=== PATIENT | female | born 1985 | race Caucasian/White ===

== ENCOUNTER → 2016-06-15 | Outpatient (CLI) | payer BC ==
[~2016-06-15] MED LIST: OXYC-57 PO; PREN1TAB29
== END | disposition home or self-care (01) ==
LOC: C.LAB1850 07:34
PROVIDERS: ATTEND Obstetrics & Gynecology
DX: O28.1 Abnormal biochemical finding on antenatal screening of mother (principal)

== ENCOUNTER → 2016-08-12 | Outpatient (CLI) | payer BC ==
[2016-08-12 12:21] LABS: URINE APPEARANCE CLEAR (CLEAR); URINE BILIRUBIN NEG (NEG); URINE COLOR YELLOW; URINE NITRITE NEG (NEG); URINE SPECIFIC GRAVITY 1.003 (1.000-1.030); UROBILINOGEN NEG (NEG)
[2016-08-12 12:31] LABS: MANUAL MICROSCOPIC REQUIRED? NO; REVIEW REQ? NO
== END | disposition home or self-care (01) ==
LOC: C.LABSPEC 11:00
PROVIDERS: ATTEND Obstetrics & Gynecology
DX: Z34.02 Encounter for supervision of normal first pregnancy, second trimester (principal)

== ENCOUNTER → 2016-10-06 | Outpatient (CLI) | payer BC | END | disposition home or self-care (01) | LOC: C.LABSPEC 11:58 | PROVIDERS: ATTEND Obstetrics & Gynecology | DX: Z34.03 Encounter for supervision of normal first pregnancy, third trimester (principal) ==

== ENCOUNTER 2016-10-19 11:53 | Outpatient (CLI) | payer BC ==
[~2016-10-19] VITALS: Ht 167.6 cm; Wt 99.5 kg
[2016-10-19] MEDS ORDERED: PREN1TAB29 (12:22)
[2016-10-19 12:46] LABS: BASO % 0.1 %; BASO ABS # 0.01 K/uL (0-0.2); EOS % 0.5 %; HEMATOCRIT 31.6 % (37-47); IG% 0.4 %; LYMPH % 20.2 %; LYMPH ABS # 2.23 K/uL (1.2-3.4); MEAN CELL VOLUME 81.9 fL (80-100); MEAN CORPUSCULAR HEMOGLOBIN 26.7 pg (25-34); MEAN PLATELET VOLUME 12.4 fL (7.4-10.4); MONO % 8.7 %; NEUT % 70.1 %; PLATELET COUNT 227 K/uL (130-400); RED BLOOD COUNT 3.86 M/uL (4.2-5.4); WHITE BLOOD COUNT 11.06 K/uL (4.8-10.8)
[2016-10-19 12:57] VITALS: Ht 167.6 cm; Wt 99.5 kg
[2016-10-19 13:14] LABS: ALKALINE PHOSPHATASE 206 U/L (45-117); ALT/SGPT 18 U/L (12-78); AST/SGOT 15 U/L (15-37); URIC ACID 5.7 mg/dl (2.6-7.2)
[2016-10-19 13:20] LABS: COMPLETE YES; MEAN CORPUSCULAR HGB CONC 32.6 g/dl (32-36)
== END 2016-10-19 13:42 | disposition home or self-care (01) ==
LOC: C.LD 11:53 → C.OPB 11:53
PROVIDERS: ATTEND Obstetrics & Gynecology
DX: O99.89 Other specified diseases and conditions complicating pregnancy, childbirth and the puerperium (principal); R03.0 Elevated blood-pressure reading, without diagnosis of hypertension; Z3A.38 38 weeks gestation of pregnancy

== ENCOUNTER 2016-10-26 10:08 | Inpatient (IN) | payer BC ==
[~2016-10-26] VITALS: Ht 170.2 cm; Wt 98.6 kg
[~2016-10-26 10:08] MED LIST changes: -OXYC-57 PO
[2016-10-26] MEDS ORDERED: PENICILLIN G POTASSIUM IV 6 MU in DEXTROSE 5% 250ML 250 ML IV ONE (11:00)
[2016-10-26] MEDS: MISOPROSTOLTAB 50 MCG TAB PO PRN ×2 (11:27→16:35)
[2016-10-26] MEDS: LACTATED RINGER'S 1000ML 1,000 ML IV SCH (11:33)
[2016-10-26 11:38] VITALS: Ht 170.2 cm; Wt 98.6 kg
[2016-10-26 12:14] LABS: HEMATOCRIT 30.7 % (37-47); MEAN CELL VOLUME 81.6 fL (80-100); MEAN CORPUSCULAR HEMOGLOBIN 26.9 pg (25-34); MEAN CORPUSCULAR HGB CONC 32.9 g/dl (32-36); MEAN PLATELET VOLUME 12.8 fL (7.4-10.4); PLATELET COUNT 200 K/uL (130-400); RED BLOOD COUNT 3.76 M/uL (4.2-5.4); WHITE BLOOD COUNT 11.29 K/uL (4.8-10.8)
[2016-10-26 12:55] LABS: ALKALINE PHOSPHATASE 201 U/L (45-117); ALT/SGPT 22 U/L (12-78); CREATININE 0.87 mg/dl (0.60-1.20)
[2016-10-26 12:58] LABS: AST/SGOT 21 U/L (15-37)
[2016-10-26] MEDS: PENICILLIN G POTASSIUM IV 3 MU in DEXTROSE 5% 100ML 100 ML IV PRN ×3 (15:27→23:38)
[2016-10-26] MEDS ORDERED: LACTATED RINGER'S 1000ML 500 ML IV PRN ×2 (19:53→23:13)
[2016-10-26] MEDS ORDERED: OXYTOCIN 30 UNITS/500ML NSS IV PRN (20:00)
[2016-10-26] MEDS ORDERED: BUPIVACAINE 0.25% 30 ML VIAL ONE (22:37)
[2016-10-26] MEDS ORDERED: EpHEDrine SULFATE INJ 50 MG/ML AMP ONE (22:37)
[2016-10-26] MEDS ORDERED: FENTANYL CITRATE INJ 50 MCG/1 ML 2 ML VIAL ONE (22:37)
[2016-10-26] MEDS ORDERED: FENTANYL 2MCG/ML ROPIV 1.25MG/ML 100ML BAG EPI ONE (22:37)
[2016-10-26] MEDS: LACTATED RINGER'S 1000ML 1,000 ML IV PRN (23:12)
[2016-10-26] MEDS ORDERED: NALOXONE HCL INJ 1 MG in SODIUM CHLORIDE 0.9% 1000ML 1,000 ML IV PRN (23:13)
[2016-10-26] MEDS ORDERED: NALBUPHINE HCL INJ 10 MG/ML AMP IV PRN (23:15)
[2016-10-26] MEDS ORDERED: EpHEDrine SULFATE INJ 50 MG/ML AMP IV PRN (23:15)
[2016-10-26] MEDS ORDERED: NALOXONE HCL INJ 0.4 MG/1 ML VIAL/CARP IV PRN (23:15)
[2016-10-26] MEDS ORDERED: ONDANSETRON INJ 2 MG/ML 2 ML VIAL IV PRN (23:15)
[2016-10-26] MEDS ORDERED: DiphenhydrAMINE HCL 50 MG/ML VIAL IV PRN (23:15)
[2016-10-26] MEDS: FENTANYL 2MCG/ML ROPIV 1.25MG/ML 100ML BAG EPI PRN (23:24)
[2016-10-27] VITALS (11 sets, daily range): BP systolic 115–124; BP diastolic 67–85; PULSE 71–83; TEMP 36.6–36.7; O2SAT 97–100
[2016-10-27] MEDS: PENICILLIN G POTASSIUM IV 3 MU in DEXTROSE 5% 100ML 100 ML IV PRN ×2 (03:37→07:25)
[2016-10-27] MEDS ORDERED: CEFAZOLIN IV 3,000 MG in DEXTROSE 5% 50ML 50 ML IV SCH (06:00)
[2016-10-27] MEDS: LACTATED RINGER'S 1000ML 1,000 ML IV SCH (06:14)
[2016-10-27] MEDS: FENTANYL 2MCG/ML ROPIV 1.25MG/ML 100ML BAG EPI PRN ×2 (07:07→07:52)
[2016-10-27] MEDS ORDERED: LACTATED RINGER'S 1000ML 1,000 ML IV SCH (08:08)
[2016-10-27] MEDS ORDERED: CARBOPROST TROMETHAMINE 250 MCG/ML AMP ONE (08:14)
[2016-10-27] MEDS ORDERED: CITRIC ACID/SODIUM CITRATE 15 ML UDC PO ONE (08:15)
[2016-10-27] MEDS ORDERED: OXYTOCIN INJ 10 UNITS/ML VIAL ONE (08:24)
[2016-10-27] MEDS: LACTATED RINGER'S 1000ML 1,000 ML IV PRN (08:25)
[2016-10-27] MEDS ORDERED: MoRPHine SULFATE PF 1 MG/ML 10 ML AMP/VIAL ONE (08:26)
[2016-10-27] MEDS ORDERED: PHENYLEPHRINE 100MCG/ML 5ML SYR ONE (08:52)
[2016-10-27] MEDS ORDERED: KETOROLAC TROMETHAMINE 30 MG/ML VIAL ONE (09:12)
[2016-10-27] MEDS ORDERED: ONDANSETRON INJ 2 MG/ML 2 ML VIAL ONE (09:12)
[2016-10-27] MEDS ORDERED: HYDROCORTISONE ACETATE 25 MG SUPP PR PRN ×2 (09:30→17:00)
[2016-10-27] MEDS ORDERED: BENZOCAINE 20% AER SPR 82.5 GM CAN EXT PRN ×2 (09:30→17:00)
[2016-10-27] MEDS ORDERED: LANOLIN OINT EXT PRN ×4 (09:30→17:00)
[2016-10-27] MEDS ORDERED: DIPHTHERIA/TETANUS/PERTUSSIS 0.5 ML SYR/VIAL IM. ONE (09:30)
[2016-10-27] MEDS ORDERED: SUPERCREAM 0.870 % 15GM JAR EXT PRN ×2 (09:30→17:00)
--- NOTE | 2016-10-27 09:35 | Anesthesia Procedure Note ---
Anesthesia Epidural Removal Nt Date & Time October 27, 2016 at 09:35 Vital Signs Pain Intensity: 4.0 Notes Mental Status: alert / awake / arousable, participated in evaluation Nausea / Vomiting: adequately controlled Pain: adequately controlled Airway Patency, RR, SpO2: stable & adequate BP & HR: stable & adequate Hydration State: stable & adequate Neuraxial Anesthesia: was administered Anesthetic Complications: no major complications apparent, pt satisfied with anesthetic care Epidural: removed without complications, with tip intact
[2016-10-27] MEDS ORDERED: SODIUM CHLORIDE 0.9% 1000ML 1,000 ML IV PRN (09:37)
[2016-10-27] MEDS ORDERED: LACTATED RINGER'S 1000ML 500 ML IV PRN (09:37)
[2016-10-27] MEDS ORDERED: NALOXONE HCL INJ 1 MG in SODIUM CHLORIDE 0.9% 1000ML 1,000 ML IV PRN (09:37)
[2016-10-27] MEDS ORDERED: NALOXONE HCL INJ 0.08 MG in SYRINGE 1.8 ML IV PRN (09:37)
[2016-10-27] MEDS ORDERED: NALOXONE HCL 0.4 MG/1 ML VIAL/CARP IV PRN (09:45)
[2016-10-27] MEDS ORDERED: ONDANSETRON INJ 2 MG/ML 2 ML VIAL IV PRN (09:45)
[2016-10-27] MEDS ORDERED: KETOROLAC TROMETHAMINE 30 MG/ML VIAL IV. PRN (09:45)
[2016-10-27] MEDS ORDERED: DiphenhydrAMINE HCL 50 MG/ML VIAL IV PRN ×2 (09:45→17:00)
[2016-10-27] MEDS ORDERED: NALBUPHINE HCL INJ 10 MG/ML AMP IV PRN (09:45)
[2016-10-27] MEDS ORDERED: EpHEDrine SULFATE INJ 50 MG/ML AMP IV PRN (09:45)
[2016-10-27] MEDS ORDERED: MoRPHine SULFATE PF 1 MG/ML 10 ML AMP/VIAL EPI PRN (09:45)
[2016-10-27] MEDS ORDERED: MoRPHine SULFATE 2 MG/ML CARP IV PRN (09:45)
[2016-10-27] MEDS ORDERED: NO NARCOTICS OR SEDATIVES SCH (09:45)
--- NOTE | 2016-10-27 10:21 | OPERATIVE REPORT ---
DATE OF OPERATION: 10/27/2016 PREOPERATIVE DIAGNOSES: 1. Term . 2. Gestational hypertension. 3. Failure to descend. POSTOPERATIVE DIAGNOSES: Same. PROCEDURE PERFORMED: Primary low cervical transverse section. SURGEON: Schuyler Verde MD FINGERNAIL FORMER: Rolando Barrientos MD ANESTHESIA: Epidural. FINDINGS: Viable female infant with Apgars of 9 and 9 and a weight of 8 pounds 6 ounces. Cord blood collection kit obtained. Cord gases and cord blood samples obtained. Normal appearing tubes and ovaries bilaterally. PROCEDURE IN DETAIL: The patient was taken to the operating room and under epidural anesthesia, she was placed in supine position and draped and prepped in the usual fashion. Pfannenstiel type incision was made. Underlying subcutaneous tissue was dissected down to the ventral abdominal fascia, which was nicked and opened in a horizontal manner. Preperitoneal fascia was dissected away until the peritoneal cavity was entered and opened in a vertical manner. The peritoneum overlying the uterus was elevated, opened in a semi-lunar fashion, and the inferior margin of which was taken down creating the bladder flap. Uterus was entered sharply and extended in a semilunar fashion manually. Viable female infant with description as above was delivered. Cord was clamped and cut and the baby was passed off to pediatrics, who was in attendance for the delivery. Cord gases and cord blood samples obtained. Cord blood collection kit obtained and sent per the patient request. The placenta was delivered spontaneously and the uterus was exteriorized. The uterine cavity was wiped clean of any residual blood tissue and/or clot. Hemabate 250 mcg was injected directly into the myometrium. The edges of the uterine incision were isolated. They were closed with 2 layers of 4-0 Vicryl, the first a running locking stitch and the second an imbricating stitch. Hemostasis was achieved and the uterus was returned to the pelvic cavity. The pericolic gutters were cleared bilaterally of any blood tissue and/or clot. Sponge and needle count was correct. Incision was inspected for hemostasis again, which was present. The rectus muscle was then plicated in the midline with a running 2-0 Vicryl stitch. The fascia was closed laterally with 0 Vicryl suture. The subcutaneous tissue was irrigated with warm saline and the skin incision was closed with a 4-0 Monocryl subcuticular suture. Sterile dressing was applied and the patient was taken to the recovery room in satisfactory condition. I attest to the content of the Intraoperative Record and any orders documented therein. Any exceptio ns are noted below.
[2016-10-27] MEDS: OXYTOCIN INJ 20 UNITS in LACTATED RINGER'S 1000ML 1,000 ML IV SCH ×2 (10:24→18:07)
[2016-10-27] MEDS ORDERED: MAGNESIUM HYDROXIDE SUSP 30 ML UDC PO PRN (17:00)
[2016-10-27] MEDS ORDERED: SENNA 8.6 MG TAB PO PRN (17:00)
[2016-10-27] MEDS: SIMETHICONE 80 MG CHEW PO SCH ×2 (17:13→19:42)
[2016-10-27] MEDS: DOCUSATE SODIUM 100 MG CAP PO SCH (19:42)
[2016-10-28] VITALS: O2SAT 98
[2016-10-28] MEDS ORDERED: DiphenhydrAMINE HCL 50 MG/ML VIAL IV PRN (00:30)
[2016-10-28] MEDS ORDERED: KETOROLAC TROMETHAMINE 30 MG/ML VIAL IV. PRN (00:30)
[2016-10-28] MEDS ORDERED: ONDANSETRON INJ 2 MG/ML 2 ML VIAL IV PRN (00:30)
[2016-10-28] MEDS ORDERED: DC INTRASPINAL MORPHINE ONE (00:30)
[2016-10-28] MEDS ORDERED: OXYCODONE/ACETAMINOPHEN 5-325 TAB PO PRN ×2 (00:30)
[2016-10-28] MEDS: OXYTOCIN INJ 20 UNITS in LACTATED RINGER'S 1000ML 1,000 ML IV SCH (01:07)
[2016-10-28 03:55] VITALS: BP 127/80; PULSE 77; TEMP 36.8; O2SAT 96
[2016-10-28 06:09] LABS: BASO % 0.1 %; BASO ABS # 0.01 K/uL (0-0.2); EOS % 0.4 %; IG% 0.2 %; LYMPH % 15.3 %; LYMPH ABS # 2.17 K/uL (1.2-3.4); MEAN CELL VOLUME 81.6 fL (80-100); MONO % 8.4 %; NEUT % 75.6 %; PLATELET COUNT 158 K/uL (130-400); RED BLOOD COUNT 2.82 M/uL (4.2-5.4); WHITE BLOOD COUNT 14.21 K/uL (4.8-10.8)
[2016-10-28 06:32] LABS: COMPLETE YES
[2016-10-28 07:15] VITALS: BP 129/80; PULSE 74; TEMP 36.6; O2SAT 97
--- NOTE | 2016-10-28 07:20 | Progress Note ---
Subjective Oct 28, 2016. Subjective conversation w/ patient, physical exam, lab review Ambulation: ambulating normally Diet Tolerance: Regular Diet Lochia: Moderate Feeding Type: Breast Feeding Objective Vital Signs Date Time Temp Pulse Resp B/P (MAP) Pulse Ox O2 Delivery O2 Flow Rate FiO2 10/28/16 03:55 36.8 77 18 127/80 (96) 96 Room Air 10/28/16 00:00 18 98 10/27/16 23:30 36.6 83 18 115/75 (88) 99 Room Air 10/27/16 23:30 Room Air 10/27/16 23:00 18 99 10/27/16 22:00 20 98 10/27/16 21:00 18 97 10/27/16 20:00 18 98 10/27/16 19:45 36.7 81 20 124/85 (98) 100 Room Air 10/27/16 19:45 Room Air 10/27/16 19:00 20 100 10/27/16 18:00 18 99 10/27/16 17:00 18 99 10/27/16 15:45 99 Room Air 10/27/16 15:45 99 Room Air 10/27/16 15:45 18 99 10/27/16 15:45 36.7 71 16 115/67 (83) 99 Room Air 10/27/16 15:00 18 99 Physical Exam General Appearance: WELL-APPEARING Respiratory/Chest: lungs clear Abdomen: non tender Extremities: no calf tenderness Laboratory Results Last 24 Hours Test 10/28/16 05:56 White Blood Count 14.21 K/uL Red Blood Count 2.82 M/uL Hemoglobin 7.6 g/dL Hematocrit 23.0 % Mean Corpuscular Volume 81.6 fL Mean Corpuscular Hemoglobin 27.0 pg Mean Corpuscular Hemoglobin Concent 33.0 g/dl Platelet Count 158 K/uL Mean Platelet Volume 12.0 fL Neutrophils (%) (Auto) 75.6 % Lymphocytes (%) (Auto) 15.3 % Monocytes (%) (Auto) 8.4 % Eosinophils (%) (Auto) 0.4 % Basophils (%) (Auto) 0.1 % Neutrophils # (Auto) 10.74 K/uL Lymphocytes # (Auto) 2.17 K/uL Monocytes # (Auto) 1.20 K/uL Eosinophils # (Auto) 0.06 K/uL Basophils # (Auto) 0.01 K/uL RDW Standard Deviation 44.9 fL RDW Coefficient of Variation 15.2 % Immature Granulocyte % (Auto) 0.2 % Immature Granulocyte # (Auto) 0.03 K/uL Red Blood Cell Morphology Unremarkable Assessment and Plan Post-Op Day#: 1 Continue Routine Care: Hb 7.6. Discussed need for iron before she leaves. Ambulate. MAGDALENE
[2016-10-28] MEDS: FERROUS SULFATE 325 MG TAB PO SCH (07:28)
[2016-10-28] MEDS: PRENATAL VITAMIN TAB PO SCH (07:28)
[2016-10-28] MEDS: SIMETHICONE 80 MG CHEW PO SCH ×4 (07:28→20:07)
[2016-10-28] MEDS: DOCUSATE SODIUM 100 MG CAP PO SCH ×2 (07:28→20:07)
[2016-10-28] MEDS: IBUPROFEN 600 MG TAB PO PRN ×3 (12:09→22:01)
[2016-10-28 17:10] VITALS: BP 132/84; PULSE 71; TEMP 36.8
[2016-10-28] MEDS ORDERED: MAGNESIUM HYDROXIDE SUSP 30 ML UDC PO SCH (22:00)
[2016-10-28] MEDS ORDERED: BISACODYL 5 MG TABEC PO ONE (22:00)
[2016-10-28] MEDS ORDERED: SENNA 8.6 MG TAB PO SCH (22:00)
[2016-10-28 23:10] VITALS: BP 131/83; PULSE 64; TEMP 36.6; O2SAT 97
[2016-10-29] MEDS ORDERED: ACETAMINOPHEN 325 MG TAB ONE (00:39)
[2016-10-29] MEDS ORDERED: NURSING VERBAL MED ORDER ONE (00:45)
[2016-10-29] MEDS ORDERED: ACETAMINOPHEN 325 MG TAB PO PRN (01:00)
[2016-10-29] MEDS: IBUPROFEN 600 MG TAB PO PRN ×3 (01:53→11:37)
[2016-10-29 06:34] LABS: HEMATOCRIT 21.6 % (37-47)
--- NOTE | 2016-10-29 07:07 | Progress Note ---
Subjective Oct 29, 2016. Subjective conversation w/ patient, physical exam, lab review Ambulation: ambulating normally Voiding: no voiding problems Passing Gas: Yes Diet Tolerance: Regular Diet Lochia: Small Feeding Type: Breast Feeding Pain: controlled with oral pain meds. Objective Vital Signs Date Time Temp Pulse Resp B/P (MAP) Pulse Ox O2 Delivery O2 Flow Rate FiO2 10/28/16 23:10 Room Air 10/28/16 23:10 36.6 64 16 131/83 (99) 97 Room Air 10/28/16 17:10 Room Air 10/28/16 17:10 36.8 71 20 132/84 (100) Room Air 10/28/16 07:15 36.6 74 16 129/80 (96) 97 Room Air 10/28/16 07:15 97 Room Air Physical Exam General Appearance: WD/WN, NO APPARENT DISTRESS Abdomen: non tender, soft Fundus: Firm, Non-Tender, Relation to Umbilicus (at u) Incision Description: Clean, Dry & Intact Extremities: non-tender, normal inspection, + pedal edema (trace) Laboratory Results Last 24 Hours Test 10/29/16 06:03 Hemoglobin 6.9 g/dL Hematocrit 21.6 % Assessment and Plan Post-Op Day#: 2 Continue Routine Care: Doing well. h/h seen. Patient is asymptomatic from this. Will continue to monitor. Discussed possible d/c. She would like to go home tonight and will d/ c after lunch.
[2016-10-29] MEDS ORDERED: OXYC-57 PO (07:09)
--- NOTE | 2016-10-29 07:11 | Discharge Instructions ---
Discharge Instructions Date of Service Oct 29, 2016. Admission Reason for Admission: R/O Rupture Of Membranes Discharge Discharge Diagnosis / Problem: s/p Discharge Goals Goal(s): Routine recovery after Activity Recommendations Activity Limitations: per Instructions/Follow-up section . Instructions / Follow-Up Instructions / Follow-Up ACTIVITY RECOMMENDATIONS: * Gradual return to full activity over the next 2-3 weeks. * No lifting - nothing heavier than baby over the next 2-3 weeks. * Do not engage in vigorous exercise, sexual activity or sports until cleared by your physician. * Do not drive or operate any motorized equipment until cleared by your physician. * You may shower/bathe daily. MEDICATIONS: For discomfort or pain, you may use Acetaminophen (Tylenol), Ibuprofen (Advil), or Naproxen (Aleve) following the package directions. For constipation you may use Colace following the package directions. BREAST CARE: If you are not breast feeding: * Wear a supportive bra 24 hours a day for one to two weeks. * Avoid stimulating your breasts and nipples as much as possible during the first few weeks after delivery. * When taking a shower, have the warm water hit your back, not breasts. * When your breasts feel full, apply ice packs. Usually three to four times a day helps ease the discomfort. * Take a mild pain medication (Tylenol / Motrin) when you are uncomfortable. If breast feeding: * Use breast milk to lubricate nipples. Lansinoh cream may be used for sore nipples. You do not need to remove cream prior to breast feeding. If using a different brand of cream, check the label for directions regarding removal of cream prior to nursing. * Wear a supportive bra. * If having problems with breasts or breast feeding, call a health care consultant or your health care provider. SPECIAL CARE INSTRUCTIONS: When you are discharged from the hospital, it is important for you to follow the instructions listed below: * During the first week at home, you should be able to care for yourself and your baby. In addition, the usual light household activities are encouraged. * Limit your activities to the way you feel. Do not try to clean the house or move furniture. Be sensible. * If you actively engage in sports and have done so up until the time of your delivery, you may resume these activities as soon as you feel able. This may take up to one month or even longer. Use good judgment. * Continue to take your vitamins for at least six weeks after the of your baby. * Your diet need not be limited unless you were on a special diet before your delivery. Breast-feeding mothers need around 2500 calories per day and at least 64-80 ounces of fluid per day (8 to 10 glasses). * You should eat foods from the four major food groups. Crash diets or fad diets are to be avoided. Eating lean meats, fresh fruits and vegetables, low-fat dairy products, high fiber foods and a regular exercise program, will help you get back to your pre- weight without putting your health at risk. * Constipation is sometimes a problem after delivery. Take a mild laxative as needed. If breast feeding, Milk of Magnesia is acceptable to use. You may use a suppository or Fleets enema. * A daily shower or tub bath is suggested. Wash incision daily with warm soapy water and pat dry. It doesn't need to be covered unless drainage is present. * A bloody vaginal discharge will usually continue until around four weeks . A small amount of bleeding may continue for as long as six weeks. Vaginal discharge changes from the bright red bleeding after delivery to pink then brownish and finally yellowish-pink before becoming white and disappearing. * Bleeding may increase with activity. Your first period may come in 4-8 weeks. If you are breast feeding, your period may be delayed even longer. * [place] (sex) can begin whenever both you and your partner feel comfortable and do not have any form of genital infection. It is recommended that you wait at least six weeks for internal and external healing to occur. If you have questions, please talk to your health care practitioner. A condom should be used to prevent infection and . * Foreplay, gentle intercourse and lubrication is very important the first several times to prevent pain. A water-based lubricant such as K-Y jelly or Astroglide may be used. * If you have RH negative blood and your baby is RH positive, you will receive RHOGAM by injection prior to discharge. The nurse will give you a card to keep with you that has the date and place that you received RHOGAM after delivery. * During your care, you had a Rubella screen done to check for the presence of rubella antibodies in your blood. If your test was negative, you will receive a Rubella vaccine prior to discharge. This vaccine may cause a fever, soreness at the injection site and flu-like symptoms. If these symptoms persist, notify your health care practitioner. is not advised for one month after a Rubella vaccine. * Verbalizes understanding of car seat law as reviewed with patient nursing. * Car Seat hand-out given and reviewed with patient by nursing. * Shaken baby information reviewed with patient by nursing. Call you doctor if: * Heavy bleeding (saturating several pads an hour) or passing clots the size of your fist. * A fever >101 degrees F (38.3 degrees C) on two occasions four hours apart and /or chills. * Unusual pain in the pelvic or vaginal areas. * Call the doctor for any increased redness, drainage or swelling around the incision and any pain unrelieved by prescribed pain medication. * "Baby Blues" lasting longer than two weeks. If you have any questions or concerns, call your health care practitioner at . FOLLOW UP VISIT: * Please call the office at to schedule a 6 week examination. It is important you keep this appointment. It is important for you to make arrangements for either yearly or twice yearly check-ups thereafter. Current Hospital Diet Patient's current hospital diet: Regular OB Diet Discharge Diet Recommended Diet: Regular Diet Procedures Procedures Performed: section Pending Studies Studies pending at discharge: no Medical Emergencies . Who to Call and When: Medical Emergencies: If at any time you feel your situation is an emergency, please call [phone] immediately. . Non-Emergent Contact Non-Emergency issues call your: [employer] Department Worker . . "Provider Documentation" section prepared by Jamsina Hernandez. . VTE Core Measure Inpt VTE Proph given/why not?: Treatment not indicated [place] Drug Monitoring Program Search Results: no issues identified
[2016-10-29] MEDS: FERROUS SULFATE 325 MG TAB PO SCH (07:42)
[2016-10-29] MEDS: DOCUSATE SODIUM 100 MG CAP PO SCH (07:42)
[2016-10-29] MEDS: PRENATAL VITAMIN TAB PO SCH (07:42)
[2016-10-29] MEDS: SIMETHICONE 80 MG CHEW PO SCH ×2 (07:42→11:36)
[2016-10-29 07:45] VITALS: BP 137/87; PULSE 56; TEMP 36.5
[2016-10-29 14:30] VITALS: BP_DIAS 87; PULSE 56; TEMP 36.5
[2016-10-29] MEDS ORDERED: BISACODYL 10 MG SUPP PR PRN (17:00)
--- NOTE | 2016-10-29 21:34 | DISCHARGE SUMMARY ---
ADMITTING DIAGNOSES: 1. Term . 2. Gestational hypertension. 3. Spontaneous rupture of membranes. DISCHARGE DIAGNOSES: 1. Same. 2. Failure to descend. PROCEDURES PERFORMED: Primary low cervical transverse section. DISCHARGE MEDICATIONS: 1. Percocet 5/325 one to two p.o. q. 4-6 hours p.r.n. pain. 2. Iron sulfate 325 mg p.o. b.i.d. ADMISSION HISTORY: The patient is a 31-year-old 1, para 0 with an EDC of 31 October, who was admitted at 39+ weeks gestational age from the office with spontaneous rupture of membranes. Membranes ruptured approximately at 0530 hours on day of admission. She was having no regular contractions. The patient had been scheduled for induction in the a.m. for gestational hypertension without proteinuria. Otherwise, course had been unremarkable, blood type O positive, antibody negative, rubella immune, hepatitis B negative. She declined a quad screen. She had an elevated 1-hour Glucola at 16 weeks with a normal 2-hour glucose tolerance test at both 16 and 28 weeks. She had a negative third trimester beta strep culture. PHYSICAL EXAMINATION: GENERAL: Upon admission, was a gravid female, in no acute distress. VITAL SIGNS: Blood pressure 132/92 and a weight of 217 pounds. HEENT: Unremarkable. NECK: Supple. LUNGS: Clear. HEART: With a regular rhythm and rate. ABDOMEN: Gravid, vertex, positive heart tones, estimated weight of 7.5 pounds. PELVIC: Showed the cervix to be 1 cm dilated, 50% effaced, and -2 station. NEUROLOGIC: Grossly intact with no clonus. ADMISSION LABORATORY VALUES: Showed an H&H of 10.1 and 30.7, platelet count of 200,000. She had normal liver function tests. HOSPITAL COURSE: Because of the spontaneous rupture of membranes as well as the diagnosis of gestational hypertension, the need for induction. Cervix was not favorable and she initially was given Cytotec 50 mcg p.o. This was repeated 4 hours later. After the second dose of Cytotec, the cervix was 1, 80% and -2. Tracing was category 2. Contractions were increasing in intensity, but still sporadic and as such the patient was switched over to Pitocin per induction protocol. The patient progressed into a regular labor pattern. She became uncomfortable. Anesthesia was consulted and an epidural was placed. The patient progressed to full dilatation, but was at a 0 station. She was comfortable with the epidural, so she was allowed to labor down for an hour before initiating her second stage. Minimal descent occurred during the laboring down and the patient began her second stage. The patient pushed for 2 hours until completed exhaustion, was only able to bring the vertex down to a +1 station with pushing. The vertex was not felt to be low enough to safely attempt an operative vaginal delivery. The patient was exhausted and unable to push anymore and the diagnosis of failure to descend was made. As such, the patient was taken to the operating room where she underwent the above listed procedures which was a primary section for failure to descend. Operative findings showed a viable female infant with Apgars of 9 and a 9 and weight of 8 pounds 6 ounces. A cord blood collection kit was obtained. Cord gases and cord blood samples were obtained. Normal appearing tubes and ovaries bilaterally. Postoperatively, the patient did well. Tyler catheter was removed on the first postoperative day. H&H came back at 7.6 and 23.0. This was felt to be consistent with the blood loss from the surgery and the anemia on admission. On the second postoperative day, H&H was 6.9 and 21.6. The patient was ambulating without any difficulty and had no orthostatic symptoms. She was discharged home with the routine discharge instructions and the prescriptions for the medications is as listed as above. She will follow up in the office for postoperative check, but is always she has been instructed to call with any questions, problems or difficulties.
== END 2016-10-29 14:00 | disposition home or self-care (01) | DRG 765 ==
LOC: C.OPB 10:08 → C.LD 10:08 → C.OPB 11:00 → C.LD 11:00 → C.OBG 10-27 13:59
PROVIDERS: ADMIT Obstetrics & Gynecology; ATTEND Obstetrics & Gynecology
PROC: 10D00Z1 Extraction of Products of Conception, Low, Open Approach (ICD-10-PCS; principal; 2016-10-27 08:49)
DX: O32.4XX0 Maternal care for high head at term, not applicable or unspecified (principal); D62 Acute posthemorrhagic anemia; Z37.0 Single live birth; O13.4 Gestational [pregnancy-induced] hypertension without significant proteinuria, complicating childbirth; O76 Abnormality in fetal heart rate and rhythm complicating labor and delivery; O75.81 Maternal exhaustion complicating labor and delivery; O90.81 Anemia of the puerperium; O99.824 Streptococcus B carrier state complicating childbirth; Z3A.39 39 weeks gestation of pregnancy

== ENCOUNTER → 2016-12-09 | Outpatient (CLI) | payer BC ==
[~2016-12-09] MED LIST changes: +OXYC-57 PO
== END | disposition home or self-care (01) ==
LOC: C.PAPS 14:37
PROVIDERS: ATTEND Obstetrics & Gynecology
DX: Z01.419 Encounter for gynecological examination (general) (routine) without abnormal findings (principal); Z11.51 Encounter for screening for human papillomavirus (HPV)

== ENCOUNTER 2017-06-09 11:17 | Emergency (ER) | payer BC ==
[~2017-06-09] VITALS: Ht 170.2 cm; Wt 79.7 kg
[2017-06-09 11:24] VITALS: TEMP 37.2; Ht 170.2 cm; Wt 79.7 kg
[2017-06-09] MEDS ORDERED: OMEG10007 PO (11:51)
[2017-06-09] MEDS ORDERED: PRENTAB26 PO (11:51)
[2017-06-09] MEDS ORDERED: MISCCAP80 PO (11:51)
--- NOTE | 2017-06-09 12:24 | DIAGNOSTIC IMAGING REPORT ---
CHEST ONE VIEW PORTABLE HISTORY: Short of breath. Right-sided chest pain. COMPARISON: None. FINDINGS: Moderate right pneumothorax demonstrating a maximal pleural gap of 3.2 cm. No mediastinal shift. The heart is normal in size. No pleural effusions. The lungs are clear. IMPRESSION: Moderate right pneumothorax. These findings were discussed with Dr. Duong at 12:23 PM on 06/09/2017. Electronically signed by: Kaleb De Guzman M.D. 06/09/2017 12:23 PM Dictated Date/Time: 06/09/2017 12:21 PM
--- NOTE | 2017-06-09 13:42 | DIAGNOSTIC IMAGING REPORT ---
(CHEST) THORAX WITHOUT CT DOSE: 205.86 mGy.cm HISTORY: right pneumothorax, eval bleb per Dr. Alvarez TECHNIQUE: Multiaxial CT images of the chest were performed without contrast. A dose lowering technique was utilized adhering to the principles of ALARA. COMPARISON: Chest 06/09/2017. FINDINGS: Moderate right pneumothorax. This demonstrates a volume of approximately 30%. Small focal areas of atelectasis seen within the right middle lobe. No definite blebs. 2 mm nodular density within the right lung apex on image 61. This is of doubtful clinical significance. The left lung is clear. No mediastinal shift. The central airways are patent. No fractures within the visualized osseous structures. No mediastinal or hilar lymphadenopathy. The heart is normal in size. The visualized liver, spleen, and adrenal glands are unremarkable. Slightly hyperdense medullary. There is suggestion of a few punctate renal calculi. IMPRESSION: Right pneumothorax with a volume of approximately 30%. No blebs identified within the right lung. Electronically signed by: Kaleb De Guzman M.D. 06/09/2017 1:40 PM Dictated Date/Time: 06/09/2017 1:32 PM
--- NOTE | 2017-06-09 14:46 | EMERGENCY ROOM VISIT NOTE ---
ED Visit Note First contact with patient: 12:24 This Patient was discussed with the physician Commercial Accountant, Tania Hou PA-C. The pertinent historical and physical exam findings were confirmed. I agree with the studies ordered and with the interpretations of these studies. I agree with the disposition and care plan.
--- NOTE | 2017-06-09 15:38 | EMERGENCY ROOM VISIT NOTE ---
History First contact with patient: 11:44 Chief Complaint: CHEST PAIN Stated Complaint: R SIDED CHEST PAIN,HX PNEUMOTHORAX Nursing Triage Summary: pt developed mid to right sided chest pain this am, has a hx of right pnuemo in jan, states "feels the same" had a negative cxr this am but was sent for another to confirm. breath sounds audible but diminished in right History of Present Illness The patient is a 31 year old female who presents to the Emergency Room with complaints of right-sided chest pain with deep inspiration. The patient reports that this morning, she felt a popping/cracking sensation in her right anterior chest. It is then, she has had pain on the right side with a deep breath. 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 She had an outpatient chest x-ray and states that read was pending, and she was referred to pulmonology. She was sent here by her process excellence manager for evaluation. The patient had a spontaneous pneumothorax in January of last year and had a chest tube at that time. She was hospitalized at [facility]. The patient is not a smoker. She denies any shortness of breath or lightheadedness at this time. She rates her discomfort a 2/10. Review of Systems A complete 10 point review of systems was reviewed with the patient with pertinent positives and negatives as per history of present illness. All else were negative. Past Medical/Surgical History Medical Problems: (1) Elevated blood pressure reading (2) Gestational hypertension w/o significant proteinuria in 3rd trimester (3) Supervision of normal intrauterine in primigravida Social History Smoking Status: Never Smoker Alcohol Use: occasionally Marital Status: Housing Status: lives with family Occupation Status: employed Current/Historical Medications Scheduled Fish Oil ([place]-3), 1 CAP PO DAILY Multivit/Min/Iron/Fol Ac/Pren ( Vitamin), 1 TAB PO DAILY Probiotic Product (Probiotic), 1 CAP PO DAILY Physical Exam Vital Signs Date Time Temp Pulse Resp B/P (MAP) Pulse Ox O2 Delivery O2 Flow Rate FiO2 06/09/17 15:47 63 18 121/79 97 06/09/17 14:55 62 16 129/84 99 Room Air 06/09/17 13:35 65 17 111/66 98 Room Air 06/09/17 11:43 70 06/09/17 11:41 Room Air 06/09/17 11:24 37.2 78 20 124/90 97 Room Air Physical Exam VITALS: Vitals are noted on the nurse's note and reviewed by myself. Vital signs stable. GENERAL: This is a 31-year-old female, in no acute distress, nondiaphoretic, well-developed well-nourished. HEART: Regular rate and rhythm without murmurs gallops or rubs. LUNGS: Diminished but audible breath sounds over the right lung. No retractions or accessory muscle use. NEURO: Patient was alert and oriented to person place and time. Medical Decision & Procedures ER Provider Diagnostic Interpretation: CHEST ONE VIEW PORTABLE FINDINGS: Moderate right pneumothorax demonstrating a maximal pleural gap of 3.2 cm. No mediastinal shift. The heart is normal in size. No pleural effusions. The lungs are clear. IMPRESSION: Moderate right pneumothorax. These findings were discussed with Dr. Duong at 12:23 PM on 06/09/2017. (CHEST) THORAX WITHOUT FINDINGS: Moderate right pneumothorax. This demonstrates a volume of approximately 30%. Small focal areas of atelectasis seen within the right middle lobe. No definite blebs. 2 mm nodular density within the right lung apex on image 61. This is of doubtful clinical significance. The left lung is clear. No mediastinal shift. The central airways are patent. No fractures within the visualized osseous structures. No mediastinal or hilar lymphadenopathy. The heart is normal in size. The visualized liver, spleen, and adrenal glands are unremarkable. Slightly hyperdense medullary. There is suggestion of a few punctate renal calculi. IMPRESSION: Right pneumothorax with a volume of approximately 30%. No blebs identified within the right lung. ED Course The patient was evaluated as above. Dr. Alvarez (cardiothoracic surgery) was called, but is unfortunately out of town at this time. He does state that he will be happy to follow up with the patient when he returns and requested noncontrast CT of the chest. Case was discussed with Marcela Harvey PA-C of pulmonology, who discussed the case with Dr. Velasquez. They feel the patient may need some type of intervention/observation, but are not able to do a procedure if necessary. Case was discussed with Dr. Queen of general surgery. He states that he is not comfortable admitting this if there is no cardiothoracic surgeon on-call and recommended transfer to a facility with cardiothoracic surgery. Case was discussed with Dr. Degroot, cardiothoracic surgery at [facility]. He feels that since the patient is stable and would like to be treated conservatively, she may safely be discharged home to follow-up with him in the office tomorrow. He did give his number and recommended that the patient call immediately if she has any worsening symptoms tonight, as he will place a pigtail catheter immediately if this occurs. He does not feel that the patient requires emergent transfer at this time. Findings and treatment plan were discussed with the patient, who is agreeable. She understands that she will return immediately if she develops shortness of breath, worsening pain or any other new/concerning symptoms. Discharge instructions were reviewed with the patient. The patient verbalized understanding of my assessment and treatment plan and was discharged home in good condition. Medical Decision Differential diagnosis includes pneumothorax, PE, pneumonia, rib fracture, among others. The patient is a 31-year-old female who presents today complaining of right- sided pain with deep inspiration. Chest x-ray showed a 3 mm/ 30% pneumothorax. The patient remained very stable and requested conservative treatment versus chest tube placement. Multiple consultations were made, as there was no cardiothoracic surgeon on-call at this facility. Both pulmonology and general surgery services were not comfortable keeping the patient here without cardiothoracic backup. I was able to speak with cardiothoracic surgery from [facility], who feels that the patient is safe to be discharged home to follow up tomorrow. The patient is comfortable with this plan of care after discussion of multiple options of care and risks/benefits of each. She does have a medical background and is aware that if she has any worsening or new symptoms, she should return to the closest emergency department as soon as possible. She remained stable throughout a 4 hour stay in the emergency department and did not develop any shortness of breath, hypoxia, hypotension or tachycardia. Case management did call the cardiothoracic surgery office to ensure that the patient would have a follow-up appointment tomorrow. She was given discs of her x-ray and CT scan to take with her. Based on the patient's presentation and work up, I feel the patient is stable for outpatient treatment. The patient was educated to return to the emergency department for any worsening of their current condition or new/concerning symptoms. She will follow up with cardiothoracic surgery tomorrow. The patient was independently evaluated by Dr. Duong, ED attending physician, who agreed with my assessment and treatment plan. Medication Reconcilliation Current Medication List: was personally reviewed by me Blood Pressure Screening Patient's blood pressure: Normal blood pressure Impression Primary Impression: Spontaneous pneumothorax Departure Information Dispostion Home / Self-Care Condition GOOD Referrals Bird Dougherty M.D. (PCP) Patient Instructions My [facility] Additional Instructions You have a follow up scheduled with Dr. Degroot tomorrow at 1 pm. His office number is . If you have any worsening symptoms or shortness of breath before this appointment, call the office number or go right to the ER.
[2017-06-09 15:47] VITALS: BP 121/79; PULSE 63; O2SAT 97
== END 2017-06-09 15:43 | disposition home or self-care (01) ==
LOC: C.EDB 11:18
DX: J93.83 Other pneumothorax (principal)

== ENCOUNTER 2018-09-17 19:09 | Inpatient (IN) ==
[2018-09-17] MEDS ORDERED: LACTATED RINGER'S 1,000 ML IV SCH ×2 (21:45→22:35)
--- NOTE | 2018-09-17 21:47 | History & Physical Report ---
Date of Service September 17, 2018 Assessment & Plan (1) Previous delivery affecting , antepartum: Patient is ruptured but not in labor. Was scheduled for c/s tomorrow, so will proceed today. Consent reviewed and questions asked. Fetus category one. (2) SROM (spontaneous rupture of membranes): History of Present Illness Chief Complaint: leaking fluid Primary Care Provider: Bird Dougherty Patient is a 33yowf with iup at 39 weeks who presents complaining of lof. Notes several small gushes. no vb. Very active baby. some cramping. complicated by a hx of c/s in last and scheduled for repeat c/s tomorrow. labs--O+/ab-/pap nl/ri/rprnr/hiv-/hepb-/gc/ct-/ gtt at 16 weeks nl/ failed 28 week gtt with nl 2 hr gtt./ panorama low risk/gbs negative Allergies Allergy/AdvReac Type Severity Reaction Status Date / Time No Known Allergies Allergy Unverified 09/14/18 13:13 Home Medications Home Medications Medication Instructions Recorded Confirmed Type PNV cmb#95-ferrous fumarate-FA 1 tab PO DAILY 09/14/18 09/17/18 History [] ferrous sulfate [iron] 325 mg PO DAILY 09/14/18 09/17/18 History lactobacillus combination no.4 1 dose PO DAILY 09/14/18 09/17/18 History [Probiotic] Patient History Medical History Anemia History of pneumothorax RIGHT SPONTANEOUS 2016 + 05/2017 S/P RIGHT VATS, PLEURODESIS, RUL RESECTION Kidney stone history of in 2011 Surgical History History of section 2/2 FAILURE TO PROGRESS= 10/27/16= DOSED EPIDURAL (L3-L4) History of lung surgery RIGHT VATS, PLEURODESIS, RUL RESECTION History of wisdom tooth extraction 2002 Family History Grandmother (Paternal) Diabetes Social History Preferred Language: Georgian Communication Ability: Effective Mainframe Developer Required: No Beliefs That Will Affect Care: None marital status: Current Living Situation: Spouse Feels Safe at Home: Yes Safety Concerns: Feels Safe At This Time Smoking Status: Never smoker Do You Dip or Chew Tobacco: No Second Hand Exposure: No Hx Alcohol Use: No Hx Substance Use: No OB History g1--10/13, primary c/s for failure to progress 8#6oz JAVA MANAGER History no std, no abnl paps. Review of Systems All systems reviewed & are unremarkable except as noted in HPI & below Physical Exam Vital Signs (Past 24 Hours): Last Vital Signs Temp 98.4 F 09/17/18 19:22 Pulse 86 09/17/18 20:44 Resp 20 09/17/18 20:43 BP 125/76 09/17/18 20:44 Constitutional: WD/WN, vitals as above Respiratory: normal respiratory effort, lungs clear to auscultation Cardiovascular: RRR, no murmur, no edema Gastrointestinal (Abdomen): soft, gravid, nt Genitourinary: sse--+pool of slight green fluid sve--ft/80/-2 toco--сергей efm--150s with mod variability, accels to 180s, no decels
[2018-09-17 22:01] LABS: Basophils # (auto) 0.01 K/uL (0-0.2); Basophils % (auto) 0.1 %; Eosinophils # (auto) 0.04 K/uL (0-0.5); Eosinophils % (auto) 0.3 %; Hematocrit (blood only) 32.6 % (37-47); Hemoglobin 10.7 g/dL (12.0-16.0); Immature Granulocytes # (auto) 0.04 K/uL (0.00-0.02); Immature Granulocytes % (auto) 0.3 %; Lymphocytes # (auto) 3.65 K/uL (1.2-3.4); Lymphocytes % (auto) 30.2 %; Mean Corpuscular Volume 81.3 fL (80-100); Mean Platelet Volume 11.7 fL (7.4-10.4); Monocytes # (auto) 1.24 K/uL (0.11-0.59); Monocytes % (auto) 10.3 %; Neutrophils % (auto) 58.8 %; Platelet Count 203 K/uL (130-400); RDW Coefficient of Variation 14.9 % (11.5-14.5); RDW Standard Deviation 43.8 fL (36.4-46.3); Red Blood Count 4.01 M/uL (4.2-5.4); White Blood Count 12.08 K/uL (4.8-10.8)
[2018-09-17 22:03] LABS: Mean Corpuscular Hgb Conc 32.8 g/dL (32-36)
[2018-09-17] MEDS ORDERED: CITRIC ACID/SODIUM CITRATE 15 ML UDC ONE (22:12)
--- NOTE | 2018-09-17 22:12 | Anesthesiology Consultation ---
Date of Service September 17, 2018 Assessment & Plan (1) Encounter for pre-operative examination: Chart Review Chart Review: Acceptable Risk for Surgery and Patient seen in Pre Admission Testing Consults Requested none History Surgery Operation Date: 09/17/18 22:00 Proposed Procedures p Section in LD - Jasmina Hernandez MD, FACOG Height/Weight Height: 5 ft 7 in Weight: 97.976 kg Allergies Allergy/AdvReac Type Severity Reaction Status Date / Time No Known Allergies Allergy Unverified 09/14/18 13:13 Medications Home Medications Medication Instructions Recorded Confirmed Last Taken PNV cmb#95-ferrous fumarate-FA 1 tab PO DAILY 09/14/18 09/17/18 09/16/18 08:00 [] ferrous sulfate [iron] 325 mg PO DAILY 09/14/18 09/17/18 09/10/18 21:00 lactobacillus combination no.4 1 dose PO DAILY 09/14/18 09/17/18 09/16/18 08:00 [Probiotic] Active Medications Generic Name Dose Route Start Last Admin Trade Name Durgaq PRN Reason Stop Dose Admin Lactated Ringer's 1,000 mls @ 999 mls/hr 09/17/18 21:45 09/17/18 21:56 Lr IV 09/17/18 22:45 999 mls/hr .[id number] [place] Administration Past Medical History Medical History Anemia History of pneumothorax RIGHT SPONTANEOUS 2016 + 05/2017 S/P RIGHT VATS, PLEURODESIS, RUL RESECTION Kidney stone history of in 2011 Past Family History Family History Grandmother (Paternal) Diabetes Past Surgical History Surgical History History of section 2/2 FAILURE TO PROGRESS= 10/27/16= DOSED EPIDURAL (L3-L4) History of lung surgery RIGHT VATS, PLEURODESIS, RUL RESECTION History of wisdom tooth extraction 2002 Social History Smoking Status: Never smoker Do You Dip or Chew Tobacco: No Hx Alcohol Use: No Hx Substance Use: No substance use type: does not use Physical Exam Vital Signs Last Vital Signs Temp 36.9 C 09/17/18 19:22 Pulse 68 09/17/18 21:51 Resp 20 09/17/18 20:43 BP 116/71 09/17/18 21:51 Testing Laboratory Results 09/17/18 21:53
[2018-09-17] MEDS ORDERED: MoRPHine SULFATE PF 1 MG/ML 10 ML AMP/VIAL ONE (22:24)
[2018-09-17] MEDS ORDERED: fentaNYL citrate 100 MCG/2 ML VIAL ONE (22:24)
[2018-09-17] MEDS ORDERED: OXYTOCIN 10 UNITS/ML VIAL ONE ×2 (22:24→23:53)
[2018-09-17] MEDS ORDERED: CEFAZOLIN 3000MG 65 ML IV SCH (23:15)
[2018-09-18] MEDS ORDERED: ONDANSETRON INJ 2 MG/ML 2 ML VIAL ONE (00:01)
--- NOTE | 2018-09-18 00:33 | Post Operative Brief Note ---
Immediate Post Op Note v1 Date of Surgery September 18, 2018 Pre & Post Diagnosis Operation Date: 09/17/18 22:00 Pre-Op Diagnosis: 1. at 39 weeks 2. PROM 3. Previous , desires repeat. Post-Op Diagnosis: Same. Delivery of live female child at 2350 Lower uterine transverse incision Procedure Operation Date: 09/17/18 22:00 Actual Procedures p Section in LD(Bilateral) - Jasmina Hernandez MD, FACOG Surgeon Jasmina Hernandez MD, FACOG Rehabilitation Tech Gina Ash, SARTHAK, Tatyana Blandon RN Estimated Blood Loss 600 Findings Consistent with Post-Op Diagnosis Drains Tyler Catheter
--- NOTE | 2018-09-18 00:36 | Anesthesiology Progress Note ---
Date of Service September 18, 2018 Anesthesia Post Procedure Vital Signs Vital Signs: Temp Pulse Resp BP Pulse Ox 09/18/18 00:34 53 L 100 09/18/18 00:31 54 L 110/59 L 09/17/18 23:03 36.9 C 84 18 128/76 09/17/18 22:54 81 99 09/17/18 22:49 76 100 09/17/18 22:44 76 100 09/17/18 22:39 74 100 09/17/18 22:34 87 100 09/17/18 22:29 80 98 09/17/18 22:24 83 99 09/17/18 22:19 82 99 09/17/18 21:51 68 116/71 09/17/18 20:44 86 125/76 09/17/18 20:43 20 09/17/18 19:52 82 126/77 09/17/18 19:37 102 H 125/76 09/17/18 19:22 36.9 C 101 H 20 133/84 09/17/18 19:18 101 H 133/84 09/17/18 19:16 36.9 C 20 Notes Mental Status: alert / awake / arousable Patient Amnestic to Procedure: Yes Nausea / Vomiting: adequately controlled Pain: adequately controlled Airway Patency, RR, SpO2: stable & adequate BP & HR: stable & adequate Hydration State: stable & adequate Neuraxial Anesthesia: was administered and sensory block is resolving Anesthetic Complications: no major complications apparent and Pt Satisfied with anesthetic care
--- NOTE | 2018-09-18 01:44 | Operative Report ---
DATE OF OPERATION: 09/17/2018 PREOPERATIVE DIAGNOSES: 1. Intrauterine at 39 and 0/7 weeks. 2. Premature rupture of membranes. 2. History of previous section, desires repeat. POSTOPERATIVE DIAGNOSES: 1. Intrauterine at 39 and 0/7 weeks. 2. Premature rupture of membranes. 2. History of previous section, desires repeat. PROCEDURE: Repeat lower transverse section. SURGEON: Jasmina Hernandez MD OEM SALES MANAGER: Gina Ash RN and Tatyana Blandon RN. ANESTHESIA: Spinal. ESTIMATED BLOOD LOSS: 600 mL. FLUIDS: 1200 mL. URINE OUTPUT: 150 mL of clear yellow urine drained from the bladder at the end of the procedure. INDICATIONS: The patient is a 2, para 1-0-0-1 with a history of previous section for failure to progress, who presents at 39 and 0/7 weeks, 1 day prior to her scheduled , with premature rupture of membranes before the onset of labor. She desires repeat section. FINDINGS: Normal uterus, tubes, and ovaries were noted bilaterally. Fetus was delivered from occiput anterior presentation. There was no nuchal cord. There was thin green meconium noted on rupture of membranes. Apgars were 7 and 9. COMPLICATIONS: None. DRAINS: Tyler. DISPOSITION: To recovery room in stable condition. DESCRIPTION OF PROCEDURE: The patient was taken to the operating room where she was identified verbally and by bracelet. She was seated on the operating table where spinal anesthetic was placed by anesthesia. She was placed in dorsal supine position with a leftward tilt. She was prepped and draped in normal sterile fashion. Her spinal was tested and found to be adequate. A time-out was held identifying correct patient, procedure, positioning, and preoperative antibiotic. There were no concerns. A Pfannenstiel skin incision was made with a knife. This was taken down to the underlying layer of fascia with the knife and Bovie electrocautery. Bleeding was attended to with Bovie electrocautery. The fascia was incised in the midline with the knife and taken out laterally with scissors. The superior edge of the fascial incision was grasped, elevated, and the underlying layer of rectus muscle was taken off bluntly and with scissors. In a similar fashion, the inferior edge of the fascial incision was grasped, elevated and the underlying layer of rectus muscle was taken off bluntly and with scissors. Bleeding in the rectus muscle was attended to with Bovie electrocautery. The muscles were sharply in the midline with the knife. The peritoneum was entered by grasping bilaterally with snaps and entering sharply with the knife. An bale breaker operator's finger was placed into the peritoneum and no adhesions were noted and so the incision was taken superiorly and inferiorly with good visualization of the bladder sharply with scissors. The bladder blade was placed. The vesicouterine peritoneum was identified, entered with scissors and taken out laterally with scissors. The hysterotomy incision was scored with a knife and entered with a snap. Light green meconium was noted on rupture of membranes. The incision was stretched with the bale breaker operator's fingers. The bale breaker operator's hand was placed gently into the uterus. The head was not engaged. The head was tried to be drawn up through the hysterotomy incision, but it was a tight fit, so the vacuum was called for. The vacuum was tried x1 with a pop off, but still with an issue of fitting the head through, so bandage scissors were used to extend the uterine incision laterally on both sides. The head then was able to be delivered through the incision using a vacuum. There was no nuchal cord. The nose and mouth were bulb suctioned. The rest of the was then delivered without difficulty. The nose and mouth were again bulb suctioned. The cord was clamped and cut. The infant was handed off to the waiting pediatricians for drying and attention. Cord blood was collected for personal donation. The placenta was manually extracted. The uterus was exteriorized and cleared of all clot and debris with moistened laparotomy sponges. The hysterotomy incision was reapproximated with two 0 Vicryl sutures, the first in a running locked suture and the second in an imbricating suture of 0 Vicryl. Two [id number] sutures were needed in the midline for hemostasis and hemostasis was assured, the posterior cul-de-sac was cleared of all clot and debris. The hysterotomy incision was again inspected and found to be hemostatic. The uterus was reanteriorized. Another [id number]-gn-[id number] suture was needed for hemostasis and then hemostasis was assured. The muscles were reapproximated in the midline using several interrupted sutures of 0 Vicryl. The fascia was then reapproximated in the midline starting at the edges and meeting in the midline. The subcuticular tissue was copiously irrigated with warm normal saline. Bleeding was attended to with Bovie electrocautery. The patient's scar had partially keloid and this was removed with a knife. Bleeding at the skin edge was attended to with Bovie electrocautery and the skin was then closed with subcuticular stitch of 4-0 Vicryl. All sponge, lap, and needle counts were correct x2. The patient tolerated the procedure well and was taken to the recovery room in stable condition. I attest to the content of the Intraoperative Record and any orders documented therein. Any exceptions are noted below. KARISD
[2018-09-18] MEDS ORDERED: PROMETHAZINE HCL 25 MG in SODIUM CHLORIDE 0.9% 50 ML IV PRN (01:48)
[2018-09-18] MEDS ORDERED: SUPERCREAM 0.870% 15 GM JAR EXT PRN (01:48)
[2018-09-18] MEDS ORDERED: BENZOCAINE 20% AER SPR 82.5 GM CAN EXT PRN (01:48)
[2018-09-18] MEDS ORDERED: HYDROCORTISONE ACETATE 25 MG SUPP PR PRN (01:48)
[2018-09-18] MEDS ORDERED: SENNA 8.6 MG TAB PO PRN (01:48)
[2018-09-18] MEDS ORDERED: DIPHTHERIA/TETANUS/PERTUSSIS 0.5 ML SYR/VIAL IM ONE (01:48)
[2018-09-18] MEDS ORDERED: OXYTOCIN 20 UNITS in LACTATED RINGER'S 1,000 ML IV SCH (01:48)
[2018-09-18] MEDS ORDERED: MAGNESIUM HYDROXIDE SUSP 30 ML UDC PO PRN (01:48)
[2018-09-18] MEDS ORDERED: KETOROLAC 30 MG/ML VIAL IV ONE (03:00)
[2018-09-18] MEDS ORDERED: KETOROLAC 30 MG/ML VIAL ONE (03:10)
[2018-09-18] MEDS ORDERED: DiphenhydrAMINE HCL 50 MG/ML VIAL IV PRN ×2 (04:19→22:20)
[2018-09-18] MEDS ORDERED: NALOXONE HCL 1 MG in SODIUM CHLORIDE 0.9% 1000ML 1,000 ML IV PRN (04:19)
[2018-09-18] MEDS ORDERED: ePHEDrine sulfate 50 MG/ML AMP IV PRN (04:19)
[2018-09-18] MEDS ORDERED: NALOXONE HCL 0.08 MG in SYRINGE 1.8 ML IV PRN (04:19)
[2018-09-18] MEDS ORDERED: NALBUPHINE HCL INJ 10 MG/ML AMP IV PRN (04:19)
[2018-09-18] MEDS ORDERED: NALOXONE HCL 0.4 MG/1 ML VIAL/CARP IV PRN (04:19)
[2018-09-18] MEDS ORDERED: HYDROmorphone INJ 0.5 MG/0.5 ML SYR IV PRN (04:19)
[2018-09-18] MEDS ORDERED: MoRPHine SULFATE PF 1 MG/ML 10 ML AMP/VIAL INT SPINAL ONE (04:19)
[2018-09-18] MEDS ORDERED: LACTATED RINGER'S 500 ML IV PRN (04:19)
[2018-09-18] MEDS ORDERED: DC INTRASPINAL MORPHINE SCH (04:30)
[2018-09-18] MEDS ORDERED: SODIUM CHLORIDE 0.9% 1000ML 1,000 ML IV SCH (04:30)
[2018-09-18] MEDS ORDERED: NO NARCOTICS OR SEDATIVES SCH (04:30)
[2018-09-18] MEDS ORDERED: CITRIC ACID/SODIUM CITRATE 15 ML UDC PO SCH (06:00)
[2018-09-18] MEDS ORDERED: CEFAZOLIN 3000MG 65 ML IV SCH (06:00)
--- NOTE | 2018-09-18 08:23 | Anesthesiology Progress Note ---
Date of Service September 18, 2018 Anesthesia Post Procedure Vital Signs Vital Signs: Temp Pulse Pulse Resp BP BP Pulse Ox 09/18/18 06:05 16 95 09/18/18 05:05 16 96 09/18/18 04:10 18 95 09/18/18 03:00 36.4 C L 57 L 18 113/69 96 09/18/18 02:40 36.9 C 18 09/18/18 02:39 59 L 96 09/18/18 02:34 59 L 97 09/18/18 02:33 59 L 104/62 09/18/18 02:29 59 L 96 09/18/18 02:24 58 L 96 09/18/18 02:19 57 L 96 09/18/18 02:14 58 L 96 09/18/18 02:12 72 122/56 L 09/18/18 02:10 18 09/18/18 02:09 56 L 98 09/18/18 02:04 57 L 96 09/18/18 02:02 64 97/68 L 09/18/18 01:59 58 L 96 09/18/18 01:54 58 L 97 09/18/18 01:51 59 L 115/67 09/18/18 01:49 57 L 99 09/18/18 01:44 60 100 09/18/18 01:43 57 L 103/58 L 09/18/18 01:40 18 09/18/18 01:39 56 L 97 09/18/18 01:34 57 L 98 09/18/18 01:31 56 L 111/57 L 09/18/18 01:30 18 09/18/18 01:29 53 L 99 09/18/18 01:24 65 84 L 09/18/18 01:22 56 L 121/78 09/18/18 01:20 18 09/18/18 01:19 61 100 09/18/18 01:18 62 90 09/18/18 01:14 98 H 100 09/18/18 01:13 73 120/72 09/18/18 01:10 18 09/18/18 01:09 52 L 98 09/18/18 01:04 58 L 100 09/18/18 01:01 55 L 103/63 09/18/18 01:00 18 09/18/18 00:59 55 L 98 09/18/18 00:54 57 L 99 09/18/18 00:52 57 L 97/59 L 09/18/18 00:50 18 09/18/18 00:49 56 L 96 09/18/18 00:44 55 L 99 09/18/18 00:41 72 108/62 09/18/18 00:40 36.5 C 18 09/18/18 00:39 59 L 100 09/18/18 00:34 53 L 100 09/18/18 00:31 54 L 110/59 L 09/17/18 23:03 36.9 C 84 18 128/76 09/17/18 22:54 81 99 09/17/18 22:49 76 100 09/17/18 22:44 76 100 09/17/18 22:39 74 100 09/17/18 22:34 87 100 09/17/18 22:29 80 98 09/17/18 22:24 83 99 09/17/18 22:19 82 99 09/17/18 21:51 68 116/71 09/17/18 20:44 86 125/76 09/17/18 20:43 20 09/17/18 19:52 82 126/77 09/17/18 19:37 102 H 125/76 09/17/18 19:22 36.9 C 101 H 20 133/84 09/17/18 19:18 101 H 133/84 09/17/18 19:16 36.9 C 20 Pain Intensity Lower Abdomen: Pain Intensity: 2 Notes Mental Status: alert / awake / arousable Patient Amnestic to Procedure: Yes Nausea / Vomiting: improving with treatment Pain: adequately controlled Airway Patency, RR, SpO2: stable & adequate BP & HR: stable & adequate Hydration State: stable & adequate Neuraxial Anesthesia: was administered and sensory block is resolving Anesthetic Complications: no major complications apparent and Pt Satisfied with anesthetic care
[2018-09-18] MEDS: LACTATED RINGER'S 1,000 ML IV SCH ×2 (09:47→17:34)
[2018-09-18] MEDS: KETOROLAC 30 MG/ML VIAL IV PRN ×3 (09:48→21:50)
[2018-09-18] MEDS: SIMETHICONE 80 MG CHEW PO SCH ×4 (12:52→21:49)
[2018-09-18] MEDS: PRENATAL VITAMIN 1 TAB PO SCH (15:38)
[2018-09-18] MEDS: DOCUSATE SODIUM 100 MG CAP PO SCH ×2 (15:38→21:49)
[2018-09-18] MEDS: FERROUS SULFATE 325 MG TAB PO SCH (15:38)
[2018-09-18] MEDS ORDERED: ONDANSETRON INJ 2 MG/ML 2 ML VIAL IV PRN (22:20)
[2018-09-18] MEDS ORDERED: KETOROLAC 30 MG/ML VIAL IV PRN (22:20)
[2018-09-18] MEDS ORDERED: OXYCODONE/ACETAMINOPHEN 5mg/325mg TAB PO PRN (22:20)
[2018-09-18] MEDS ORDERED: MEPERIDINE HCL 50 MG/ML CARP IV PRN (22:20)
[2018-09-19] MEDS: IBUPROFEN 600 MG TAB PO PRN ×5 (02:47→21:22)
[2018-09-19 06:48] LABS: Basophils # (auto) 0.01 K/uL (0-0.2); Basophils % (auto) 0.1 %; Eosinophils # (auto) 0.05 K/uL (0-0.5); Eosinophils % (auto) 0.5 %; Hematocrit (blood only) 27.7 % (37-47); Hemoglobin 8.9 g/dL (12.0-16.0); Immature Granulocytes # (auto) 0.03 K/uL (0.00-0.02); Immature Granulocytes % (auto) 0.3 %; Lymphocytes # (auto) 2.74 K/uL (1.2-3.4); Lymphocytes % (auto) 26.1 %; Mean Corpuscular Hgb Conc 32.1 g/dL (32-36); Mean Corpuscular Volume 80.8 fL (80-100); Mean Platelet Volume 11.3 fL (7.4-10.4); Monocytes # (auto) 1.11 K/uL (0.11-0.59); Monocytes % (auto) 10.6 %; Neutrophils # (auto) 6.54 K/uL (1.4-6.5); Neutrophils % (auto) 62.4 %; Platelet Count 165 K/uL (130-400); RDW Coefficient of Variation 15.4 % (11.5-14.5); RDW Standard Deviation 44.9 fL (36.4-46.3); Red Blood Count 3.43 M/uL (4.2-5.4); White Blood Count 10.48 K/uL (4.8-10.8)
--- NOTE | 2018-09-19 08:02 | Obstetrical Progress Note ---
Date of Service <Rola Costa MD - Last Filed: 09/19/18 08:12> September 19, 2018 Assessment & Plan <Rola Costa MD - Last Filed: 09/19/18 08:12> (1) Previous delivery affecting , antepartum: 33yo at 39weeks with repeat after LOF. POST-OP DAY #2 -Ambulation encouraged -Pain Control -Continue eating, -continue to monitor. Day #:: 2 Subjective <Rola Costa MD - Last Filed: 09/19/18 08:12> Ambulation: ambulating normally Voiding: no voiding problems Passing Gas:: Yes Diet Tolerance:: regular diet Lochia:: Moderate Feeding Type:: breast feeding Current Pain Level(1-10): 3 Constitutional: no fever, no chills and no sweats Eyes: no problem reported Respiratory: no dyspnea Cardiovascular: + edema; no chest pain, no palpitations, no lightheadedness and no calf pain Gastrointestinal: no nausea and no vomiting Genitourinary (female): no dysuria Neurologic: no headache(s) Physical Exam <Rola Costa MD - Last Filed: 09/19/18 08:12> Vital Signs (Past 24 Hours) Last Vital Signs Temp 36.8 C 09/18/18 23:15 Pulse 62 09/18/18 23:15 Resp 20 09/18/18 23:15 BP 120/75 09/18/18 23:15 Pulse Ox 96 09/18/18 23:15 Respiratory normal respiratory effort, lungs clear to auscultation Cardiovascular Rate/Rhythm: regular rate and regular rhythm Extremities: + pedal edema; no calf tenderness Gastrointestinal (Abdomen) Inspection/Auscultation: + abdominal surgical incision (bandage: clean, dry) Results & Data <Rola Costa MD - Last Filed: 09/19/18 08:12> Laboratory Results Laboratory Results - last 24 hr 09/17/18 09/19/18 21:53 06:25 WBC 10.48 RBC 3.43 L Hgb 8.9 L Hct 27.7 L MCV 80.8 MCH 25.9 MCHC 32.1 RDW Std Deviation 44.9 RDW Coeff of Claudio 15.4 H Plt Count 165 MPV 11.3 H Immature Gran % (Auto) 0.3 Neut % (Auto) 62.4 Lymph % (Auto) 26.1 [place] % (Auto) 10.6 Eos % (Auto) 0.5 Baso % (Auto) 0.1 Immature Gran # (Auto) 0.03 H Neut # (Auto) 6.54 H Lymph # (Auto) 2.74 Alpine # (Auto) 1.11 H Eos # (Auto) 0.05 Baso # (Auto) 0.01 Antibody Screen NEGATIVE Medications Administered Home Medications PNV cmb#95-ferrous fumarate-FA [] 1 tab PO DAILY 09/14/18 [History Confirmed 09/17/18] ferrous sulfate [iron] 325 mg PO DAILY 09/14/18 [History Confirmed 09/17/18] lactobacillus combination no.4 [Probiotic] 1 dose PO DAILY 09/14/18 [History Confirmed 09/17/18] Active Medications Benzocaine (Dermoplast Pain Relieving [place]) 1 appln EXT UD PRN PRN Reason: use on skin as needed Stop: 10/18/18 01:47 Bisacodyl (Dulcolax) 5 mg PO 1999 [facility] Stop: 09/19/18 20:01 Bisacodyl (Dulcolax) 10 mg [place] PRN PRN PRN Reason: Constipation Stop: 10/20/18 00:29 Cocaine HCl (Supercream 0.870%) 1 gm EXT UD PRN PRN Reason: hemmorrhoidal inflammation Stop: 10/02/18 01:47 Diphenhydramine HCl (Benadryl) 25 mg IV QID PRN PRN Reason: Itching Stop: 10/18/18 22:19 Diphenhydramine HCl (Benadryl Capsule) 25 mg PO QID PRN PRN Reason: Itching Stop: 10/18/18 22:19 Docusate Sodium (Colace) 100 mg PO BID [facility] Stop: 10/18/18 08:59 Last Admin: 09/18/18 21:49 Dose: 100 mg Documented by: Ferrous Sulfate (Feosol) 325 mg PO QAM [facility] Stop: 10/18/18 08:59 Last Admin: 09/18/18 15:38 Dose: Not Given Documented by: Hydrocortisone (Anusol Hc) 25 mg [place] BID PRN PRN Reason: Hemorrhoids Stop: 10/18/18 01:47 Lactated Ringer's (Lr) 1,000 mls @ 125 mls/hr IV .Q8H [place] Stop: 10/18/18 01:47 Last Infusion: 09/18/18 22:26 Dose: Infused Documented by: Promethazine HCl 25 mg/ Sodium (Chloride) 51 mls @ 204 mls/hr IV Q4H PRN PRN Reason: Nausea And Vomiting Stop: 10/18/18 01:47 Last Admin: 09/18/18 07:22 Dose: 204 mls/hr Documented by: Ibuprofen (Motrin) 600 mg PO Q4H PRN PRN Reason: Pain Stop: 10/18/18 01:47 Last Admin: 09/19/18 02:47 Dose: 600 mg Documented by: Ketorolac Tromethamine (Toradol) 30 mg IV Q6H PRN PRN Reason: Pain Stop: 09/23/18 22:19 Magnesium Hydroxide (Milk Of Magnesia) 30 ml PO HS PRN PRN Reason: Constipation Stop: 10/18/18 01:47 Meperidine HCl (Demerol) 50 - 75 mg IV Q4H PRN PRN Reason: Pain Stop: 10/02/18 22:19 Ondansetron HCl (Zofran) 4 mg IV Q4H PRN PRN Reason: Nausea And Vomiting Stop: 10/18/18 22:19 Oxycodone/Acetaminophen (Percocet 5mg/325mg) 1 - 2 tab PO Q4H PRN PRN Reason: Pain Stop: 10/02/18 22:19 Prenat Multivit/Software Designer/Iron/Folic Ac ( Vitamin) 1 tab PO QAM [facility] Stop: 10/18/18 08:59 Last Admin: 09/18/18 15:38 Dose: Not Given Documented by: Sennosides (Senokot) 17.2 mg PO HS PRN PRN Reason: Constipation Stop: 10/18/18 01:47 Simethicone (Mylicon) 80 mg PO QID [facility] Stop: 10/18/18 08:59 Last Admin: 09/18/18 21:49 Dose: 80 mg Documented by: <Schuyler Verde Jr, MD, FACOG - Last Filed: 09/19/18 08:50> Co-Signing Physician Notes Resident Physician Supervision Note: I was present with Dr. Costa during the history and exam. I discussed the case with the resident and agree with the findings and plan as documented in the note. Any exceptions or clarifications are listed here: Routine post-op care, doing well Documented By: Schuyler Verde Jr, MD, FACOG
[2018-09-19] MEDS: FERROUS SULFATE 325 MG TAB PO SCH (08:36)
[2018-09-19] MEDS: DOCUSATE SODIUM 100 MG CAP PO SCH ×2 (08:37→21:23)
[2018-09-19] MEDS: PRENATAL VITAMIN 1 TAB PO SCH (08:37)
[2018-09-19] MEDS: SIMETHICONE 80 MG CHEW PO SCH ×4 (08:38→21:23)
[2018-09-19] MEDS: ACETAMINOPHEN 325 MG TAB PO PRN (15:59)
[2018-09-19] MEDS ORDERED: BISACODYL 5 MG TABEC PO SCH (20:00)
[2018-09-20] MEDS ORDERED: BISACODYL 10 MG SUPP PR PRN (00:30)
[2018-09-20] MEDS: ACETAMINOPHEN 325 MG TAB PO PRN (01:40)
[2018-09-20] MEDS: IBUPROFEN 600 MG TAB PO PRN ×3 (01:41→11:14)
[2018-09-20 06:29] LABS: Hematocrit (blood only) 27.1 % (37-47); Hemoglobin 8.7 g/dL (12.0-16.0)
--- NOTE | 2018-09-20 07:31 | Obstetrical Progress Note ---
Date of Service <Rola Costa MD - Last Filed: 09/20/18 08:12> September 20, 2018 Assessment & Plan <Rola Costa MD - Last Filed: 09/20/18 08:12> (1) delivery delivered: 33yo at 39weeks with repeat after LOF. POST-OP DAY #3 -Routine /op care -Ambulation encouraged -Pain Control -H/H reviewed: 8.7/27.1 from 10.7/32.6 on admission. Consistent with postop drop. -Discharge today. Day #:: 3 Day #:: 3 Subjective <Rola Costa MD - Last Filed: 09/20/18 08:12> Ambulation: ambulating normally Voiding: no voiding problems Passing Gas:: Yes Diet Tolerance:: regular diet Lochia:: Moderate Current Pain Level(1-10): 1 Respiratory: no dyspnea Cardiovascular: no chest pain, no palpitations and no calf pain Gastrointestinal: no nausea and no vomiting Neurologic: no headache(s) Physical Exam <Rola Costa MD - Last Filed: 09/20/18 08:12> Vital Signs (Past 24 Hours) Last Vital Signs Temp 37.2 C 09/19/18 23:05 Pulse 56 L 09/19/18 23:05 Resp 16 09/19/18 23:05 BP 132/87 09/19/18 23:05 Pulse Ox 98 09/19/18 23:05 Respiratory normal respiratory effort, lungs clear to auscultation Cardiovascular Rate/Rhythm: regular rate and regular rhythm Extremities: no calf tenderness Gastrointestinal (Abdomen) Inspection/Auscultation: + abdominal surgical incision (steri-strips on, incision underneath without bleeding or drainage) Genitourinary OB Exam Abdomen: + fundal height Fundus: + firm Results & Data <Rola Costa MD - Last Filed: 09/20/18 08:12> Laboratory Results Laboratory Results - last 24 hr 09/20/18 06:20 Hgb 8.7 L Hct 27.1 L Medications Administered Home Medications PNV cmb#95-ferrous fumarate-FA [] 1 tab PO DAILY 09/14/18 [History Confirmed 09/17/18] ferrous sulfate [iron] 325 mg PO DAILY 09/14/18 [History Confirmed 09/17/18] lactobacillus combination no.4 [Probiotic] 1 dose PO DAILY 09/14/18 [History Confirmed 09/17/18] Active Medications Acetaminophen (Tylenol) 650 mg PO Q4H PRN PRN Reason: Mild Pain Stop: 10/19/18 15:43 Last Admin: 09/20/18 01:40 Dose: 650 mg Documented by: Benzocaine (Dermoplast Pain Relieving [place]) 1 appln EXT UD PRN PRN Reason: use on skin as needed Stop: 10/18/18 01:47 Bisacodyl (Dulcolax) 10 mg [place] PRN PRN PRN Reason: Constipation Stop: 10/20/18 00:29 Cocaine HCl (Supercream 0.870%) 1 gm EXT UD PRN PRN Reason: hemmorrhoidal inflammation Stop: 10/02/18 01:47 Diphenhydramine HCl (Benadryl) 25 mg IV QID PRN PRN Reason: Itching Stop: 10/18/18 22:19 Diphenhydramine HCl (Benadryl Capsule) 25 mg PO QID PRN PRN Reason: Itching Stop: 10/18/18 22:19 Docusate Sodium (Colace) 100 mg PO BID [facility] Stop: 10/18/18 08:59 Last Admin: 09/19/18 21:23 Dose: 100 mg Documented by: Ferrous Sulfate (Feosol) 325 mg PO QAM [facility] Stop: 10/18/18 08:59 Last Admin: 09/19/18 08:36 Dose: 325 mg Documented by: Hydrocortisone (Anusol Hc) 25 mg [place] BID PRN PRN Reason: Hemorrhoids Stop: 10/18/18 01:47 Lactated Ringer's (Lr) 1,000 mls @ 125 mls/hr IV .Q8H [facility] Stop: 10/18/18 01:47 Last Infusion: 09/18/18 22:26 Dose: Infused Documented by: Promethazine HCl 25 mg/ Sodium (Chloride) 51 mls @ 204 mls/hr IV Q4H PRN PRN Reason: Nausea And Vomiting Stop: 10/18/18 01:47 Last Admin: 09/18/18 07:22 Dose: 204 mls/hr Documented by: Ibuprofen (Motrin) 600 mg PO Q4H PRN PRN Reason: Pain Stop: 10/18/18 01:47 Last Admin: 09/20/18 05:43 Dose: 600 mg Documented by: Ketorolac Tromethamine (Toradol) 30 mg IV Q6H PRN PRN Reason: Pain Stop: 09/23/18 22:19 Magnesium Hydroxide (Milk Of Magnesia) 30 ml PO HS PRN PRN Reason: Constipation Stop: 10/18/18 01:47 Meperidine HCl (Demerol) 50 - 75 mg IV Q4H PRN PRN Reason: Pain Stop: 10/02/18 22:19 Ondansetron HCl (Zofran) 4 mg IV Q4H PRN PRN Reason: Nausea And Vomiting Stop: 10/18/18 22:19 Oxycodone/Acetaminophen (Percocet 5mg/325mg) 1 - 2 tab PO Q4H PRN PRN Reason: Pain Stop: 10/02/18 22:19 Prenat Multivit/[place]/Iron/Folic Ac ( Vitamin) 1 tab PO QAM [facility] Stop: 10/18/18 08:59 Last Admin: 09/19/18 08:37 Dose: 1 tab Documented by: Sennosides (Senokot) 17.2 mg PO HS PRN PRN Reason: Constipation Stop: 10/18/18 01:47 Simethicone (Mylicon) 80 mg PO QID [facility] Stop: 10/18/18 08:59 Last Admin: 09/19/18 21:23 Dose: 80 mg Documented by: <Brendan Greco MD - Last Filed: 09/26/18 09:43> Co-Signing Physician Notes Patient seen and evaluated and agree with the above finding and plan
[2018-09-20] MEDS: PRENATAL VITAMIN 1 TAB PO SCH (08:56)
[2018-09-20] MEDS: DOCUSATE SODIUM 100 MG CAP PO SCH (08:57)
[2018-09-20] MEDS: FERROUS SULFATE 325 MG TAB PO SCH (08:57)
[2018-09-20] MEDS: SIMETHICONE 80 MG CHEW PO SCH (08:58)
--- NOTE | 2018-09-21 13:44 | Discharge Summary ---
ADMISSION DIAGNOSES: 1. Intrauterine at 39 weeks. 2. Spontaneous rupture of membranes. 3. History of previous section, desiring repeat. DISCHARGE DIAGNOSES: 1. Intrauterine at 39 weeks. 2. Spontaneous rupture of membranes. 3. History of previous section, desiring repeat. PROCEDURES: Repeat lower transverse section. HISTORY OF PRESENT ILLNESS: The patient is a 33-year-old white female 2, para 1-0-0-1 with an intrauterine at 39 weeks who presents complaining of leakage of fluid, noting several small gushes. No vaginal bleeding, very active baby, some mild cramping. complicated by history of last and she is scheduled for repeat section tomorrow. For the rest of the patient's detailed history and physical, please see her history and physical. ASSESSMENT: This is a 39-week intrauterine who presents with spontaneous rupture of membranes and desired for repeat section. HOSPITAL COURSE: The patient was admitted. She underwent a repeat lower transverse section without difficulty. ESTIMATED BLOOD LOSS: 600 mL. FINDINGS: Normal uterus, tubes, and ovaries were noted bilaterally. Fetus was delivered from occiput anterior presentation. There was thin, green meconium noted on rupture of membranes. Apgars were 7 and 9. Postoperative course was uncomplicated. She tolerated a regular diet, ambulated without difficulty, voided after the removal of her [place] catheter, tolerated a regular diet and oral pain medications. She was discharged home on postoperative day #3. Discharge H and H was 8.71 and 27.1. She was discharged home with a prescription for Percocet for pain and to return as needed for post- followup in a 6-week visit.
== END 2018-09-20 11:55 | disposition home or self-care (01) | DRG 788 ==
LOC: OPB 19:09 → 4S1 19:10 → 4S2 09-18 03:04
DX: Z3A.39 39 weeks gestation of pregnancy; O34.211 Maternal care for low transverse scar from previous cesarean delivery; Z37.0 Single live birth; O42.92 Full-term premature rupture of membranes, unspecified as to length of time between rupture and onset of labor